=== PATIENT | female | born 1990 | race Caucasian/White ===

== ENCOUNTER 2018-10-06 00:03 | Emergency (ER) | payer SELFPAY ==
[~2018-10-06] VITALS: Ht 160 cm; Wt 59.0 kg
[2018-10-06 00:44] VITALS: BP 116/82
[2018-10-06 01:08] LABS: AMPHETAMINE SCREEN, URINE NEGATIVE (NEGATIVE); BARBITURATE SCREEN URINE NEGATIVE (NEGATIVE); BENZODIAZEPINES SCREEN URINE POSITIVE (NEGATIVE); CANNABINOID SCREEN, URINE NEGATIVE (NEGATIVE); COCAINE SCREEN URINE NEGATIVE (NEGATIVE); METHADONE STAT NEGATIVE (NEGATIVE); METHAMPHETAMINE SCREEN URINE S NEGATIVE (NEGATIVE); OPIATE SCREEN URINE NEGATIVE (NEGATIVE); OXYCODONE STAT NEGATIVE (NEGATIVE); PROPOXYPHENE STAT NEGATIVE (NEGATIVE); TRICYCLIC ANTIDEPRESSANTS SCRE NEGATIVE (NEGATIVE)
--- NOTE | 2018-10-06 05:00 | ED GU-Female ---
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 PT STATES SHE HAS HAD TO CHANGE OUT 5 TAMPOONS TODAY AND REPORTS BRIGHT RED FLOW. PT STATES HER IUD HAS BEEN IN FOR FIVE YEARS AND IS NOW EPIRED, FEELS LIKE IT NEEDS TO BE REMOVED. Nursing Sepsis Screen: No Definite Risk Source: patient History of Present Illness Date Seen by Provider: October 06, 2018 Time Seen by Provider: 00:20 Initial Comments PT ARRIVES VIA POV PT STATES SHE WAS ASLEEP AND WOKE UP AT 11:00 AM THIS MORNING WITH LOWER ABDOMINAL CRAMPING, BEGAN HAVING VAGINAL BLEEDING AND BURNING ON URINATION STATES SHE HAS IUD IN PLACE, BUT HAS BEEN IN PLACE FOR OVER 5 YEARS AND IS OVERDUE TO HAVE IT REMOVED STATES SHE HAS USED 5 TAMPONS TODAY STATES LAST PERIOD WAS 1 1/2-2 MONTHS AGO NO NAUSEA/VOMITING NO FEVER NO BACK PAIN HAS NOT TAKEN ANYTHING FOR PAIN HAS NOT DONE A HOME TEST--STATES SHE WENT TO [facility] LAST WEEK BECAUSE SHE THOUGHT SHE MIGHT BE , BUT LEFT WITHOUT BEING SEEN--"DIDN'T WANT TO WAIT" PCP: [facility] Allergies and Home Medications Patient Home Medication List Home Medication List Reviewed: Yes Review of Systems Review of Systems Constitutional: No fever Respiratory: no symptoms reported Cardiovascular: no symptoms reported Gastrointestinal: see HPI Genitourinary: see HPI Musculoskeletal: no symptoms reported Past Xlhvokl-Cheljg-Iqwiuz Hx Patient Social History Alcohol Use: Regular Use (> 1 PINT OF HARD LIQUOR/DAY) Recreational Drug Use: No (DENIES ) Smoking Status: Current Everyday Smoker (1 PPD) Type Used: Cigarettes Recent Foreign Travel: No Contact w/Someone Who Travel: No Recent Infectious Disease Expo: No Past Medical History Surgeries: Yes (ELECTIVE X 1) Respiratory: No Cardiac: No Neurological: No : No Last Menstrual Period: Aug 20, 2018 Hx : 5 Hx Para: 2 Hx Total # of Abortions (Sp): 3 (1 ELECTIVE , 2 MISCARRIAGES) 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 oz. 58.830109kv; BMI Method:Stated General Appearance: WD/WN, no apparent distress, other (LAYING OUTSTRETCHED, DOES NOT APPEAR TO BE IN ANY DISCOMFORT OR DISTRESS, HAIR IS DYED ROYAL BLUE COLOR. ) Progress/Results/Core Measures Suspected Sepsis Recent Fever Within 48 Hours: No Infection Criteria Present: None New/Unexplained Altered Menta: No Sepsis Screen: No Definite Risk SIRS Temperature:98.3 Pulse: 83 Respiratory Rate: 18 Blood Pressure 116 /82 Mean: 93 Results/Orders Lab Results Laboratory Tests Test 10/06/18 00:16 Range/Units Urine Opiates Screen NEGATIVE NEGATIVE Urine Oxycodone Screen NEGATIVE NEGATIVE Urine Methadone Screen NEGATIVE NEGATIVE Urine Propoxyphene Screen NEGATIVE NEGATIVE Urine Barbiturates Screen NEGATIVE NEGATIVE Ur Tricyclic Antidepressants Screen NEGATIVE NEGATIVE Urine Phencyclidine Screen NEGATIVE NEGATIVE Urine Amphetamines Screen NEGATIVE NEGATIVE Urine Methamphetamines Screen NEGATIVE NEGATIVE Urine Benzodiazepines Screen POSITIVE H NEGATIVE Urine Cocaine Screen NEGATIVE NEGATIVE Urine Cannabinoids Screen NEGATIVE NEGATIVE My Orders Orders - DREA GLASS DO Urine Bedside (10/06/18 00:27) Drug Screen Stat (Urine) (10/06/18 00:43) Vital Signs/I&O 10/06/18 10/06/18 00:11 00:44 Temp 98.3 98.3 Pulse 83 83 Resp 18 18 B/P (MAP) 116/82 (93) 116/82 (93) Pulse Ox 98 98 O2 Delivery Room Air Capillary Refill : Less Than 3 Seconds Blood Pressure Mean: 93 Progress Note : Progress Note STEPPED OUT OF ROOM FOR PT TO CHANGE INTO GOWN, ADVISED PT THAT I WOULD BE DOING A PELVIC EXAM, BECAUSE OF HER COMPLAINTS 004--PT NOT IN ROOM AND LEFT WITHOUT TELLING ANY STAFF. EXAM NOT ABLE TO BE COMPLETED DUE TO PT LEAVING Departure Impression Primary Impression: Left against medical advice Disposition: 07 AGAINST MEDICAL ADVICE Condition: Against Medical Advice Departure-Patient Inst. Referrals: [facility] (PCP) Primary Care Physician DREA GLASS DO October 06, 2018 05:00
== END 2018-10-06 00:44 | disposition left against medical advice (07) ==
LOC: ER 00:08
DX: N93.9 Abnormal uterine and vaginal bleeding, unspecified (principal); R30.0 Dysuria; F17.210 Nicotine dependence, cigarettes, uncomplicated; Z98.890 Other specified postprocedural states; Z97.5 Presence of (intrauterine) contraceptive device
CPT/HCPCS: 80306; 84703; 99282